=== PATIENT | male | born 1965 | race Caucasian/White ===

== ENCOUNTER 2016-02-23 12:03 | Emergency (ER) | payer BC, OTHER ==
[2016-02-23 12:56] VITALS: BP 146/87; PULSE 65; RESP 16; TEMP 96.8
--- NOTE | 2016-02-23 13:06 | ED ---
General Adult HPI - General Chief complaint: Extremity Injury, Lower Stated complaint: Fall - Ankle Injury Time Seen by Provider: 02/23/16 12:58 Source: patient, RN notes reviewed Mode of arrival: wheelchair Limitations: no limitations - History of Present Illness Initial comments: 50-year-old male who presents with right-sided ankle pain after falling down 3 stairs about 2 hours ago. Patient states he slipped down 3 stairs and rolled his right ankle. Patient states he also hit his tailbone but denies any radicular pain, back pain or loss of bowel or bladder function or loss of sensation to the saddle area. Patient denies any numbness/weakness or tingling. Patient states the pain is worse with flexion and extension of the ankle. Patient has not been able to bear weight to the right lower extremity since the fall. Patient denies any recent fever, chills, shortness breath, chest pain, abdominal pain, nausea/vomiting/diarrhea, back pain, hematuria, headache, or visual changes, or any other complaints. - Related Data Home Medications Medication Instructions Recorded Confirmed Atorvastatin Calcium [Lipitor] 20 mg PO DAILY 06/29/13 02/04/15 Omeprazole [PriLOSEC] 20 mg PO AC-BRKFST 06/29/13 02/04/15 Metoprolol Succinate [Toprol XL] 50 mg PO QAM 10/28/14 02/06/15 Previous Rx's Medication Instructions Recorded HYDROcodone/APAP 5-325MG [[place] 1 tab PO Q6HR #12 tab 02/23/16 5-325] Allergies Allergy/AdvReac Type Severity Reaction Status Date / Time No Known Allergies Allergy Verified 02/23/16 12:52 Review of Systems ROS Statement: Those systems with pertinent positive or pertinent negative responses have been documented in the HPI. ROS Other: All systems not noted in ROS Statement are negative. Past Medical History Past Medical History: GERD/Reflux, Hyperlipidemia, Hypertension Additional Past Medical History / Comment(s): FREQ DIARRHEA,STEROIDS NOV 2014 History of Any Multi-Drug Resistant Organisms: None Reported Past Surgical History: Cholecystectomy Additional Past Surgical History / Comment(s): EGD; COLONOSCOPY Past Anesthesia/Blood Transfusion Reactions: No Reported Reaction Past Psychological History: No Psychological Hx Reported Additional Psychological History / Comment(s): NO TX W/ RX Smoking Status: Never smoker Past Alcohol Use History: Occasional Past Drug Use History: None Reported - Past Family History Father Sister(s) Family Medical History: Cancer Additional Family Medical History / Comment(s): FATHER - LUNG CA; SISTER - BREAST CA General Exam - General Exam Comments Initial Comments: General: The patient is awake and alert, in no distress, and does not appear acutely ill. Neck: The neck is supple, there is no tenderness or JVD. Cardiovascular: There is a regular rate and rhythm. No murmur, rub or gallop is appreciated. Respiratory: Lungs are clear to auscultation, respirations are non-labored, breath sounds are equal. No wheezes, stridor, rales, or rhonchi. Musculoskeletal: There is tenderness to palpation of the medial aspect of the right ankle. There is a deformity to the medial aspect of the right ankle. There is swelling to the medial aspect of the right ankle and an approx 1.5 cm abrasion over the medial malleolus. There is some tenderness to palpation of the distal right tib-fib as well. There is no tenderness palpation to the right foot. Patient has limited range of motion to the right ankle joint due to pain, Sensation intact. Posterior tibial pulses and dorsalis pedis pulses are present bilaterally via Doppler and palpation. Capillary refill is normal at less than 2 seconds. Patient has good coloring to bilateral lower extremities. There is no tenderness to the patient's lumbar spine or paraspinal muscles. Neurological: A&O x 3. CN II-XII intact, There are no obvious motor or sensory deficits. Coordination appears grossly intact. Speech is normal. Skin: Abrasion approximately 1.5 cm to the right medial malleolus with localized swelling and tenderness. Skin is warm and dry and no rashes or lesions are noted. Psychiatric: Normal mood and affect. Limitations: no limitations Course Vital Signs 02/23/16 12:53 Temperature 96.8 F L Pulse Rate 65 Respiratory 16 Rate Blood Pressure 146/87 O2 Sat by Pulse 97 Oximetry Medical Decision Making - Medical Decision Making This is a 50-year-old male with right ankle pain. On physical exam there is tenderness to palpation of the medial aspect of the right ankle. There is a deformity to the medial aspect of the right ankle. There is swelling to the medial aspect of the right ankle and an 1.5 cm abrasion over the medial malleolus There is some tenderness to palpation of the distal tib-fib as well. There is no tenderness palpation to the right foot. Patient has limited range of motion to the right ankle joint due to pain, Sensation intact. Posterior tibial pulses and dorsalis pedis pulses are present via Doppler. Capillary refill is normal at less than 2 seconds. Patient has good coloring to bilateral lower extremities. X-ray of the right ankle is done and reviewed showing: Is a probable comminuted oblique fracture through the distal metaphysis of the right fibula with slight lateral displacement and angulation, associated lateral subluxation of the tibiotalar joint with associated avulsion fracture likely at the medial malleolus. Sclerosis of the posterior aspect of the distal tibia may represent nondisplaced fracture seen best on the lateral view. There is soft tissue swelling, ankle effusion. The report read by Dr. Momin. Patient was given a [place] in the EC today for pain. A short leg posterior OCL splint to the right lower extremity was placed. Neurovascular was rechecked and is intact. Patient was instructed to stay non- weightbearing to the right lower extremity. Attending physician Dr. Willams assisted with splint placement to the right lower extremity. Patient was instructed to rest, ice, elevate and keep splint on until follow-up with orthopedics. Patient will be given crutches. Discussed with patient to follow- up with orthopedics in the next 1-2 days. Please return to the EC if symptoms worsen or for any other concerns. Discussed return parameters. I discussed this case with attending physician Dr. Vidales who awoke withh on-call orthopedic physician Dr. Avalos who suggested splinting the right lower extremity and outpatient orthopedic follow-up. Patient was discharged home. Disposition Clinical Impression: Ankle fracture, right Disposition: HOME SELF-CARE Condition: Good Instructions: Ankle Fracture (ED) Additional Instructions: Please rest, ice, elevate, and use splint for support. Please stay nonweightbearing to the right lower extremity and use crutches. Please use [place] as prescribed. Please follow up with orthopedics tomorrow or as soon as possible. Please return to the EC for any worsening symptoms or for any further concerns. Prescriptions: HYDROcodone/APAP 5-325MG [[place] 5-325] 1 tab PO Q6HR #12 tab Referrals: Frankie Burciaga MD [Primary Care Provider] - 1-2 days William Avalos MD [STAFF PHYSICIAN] - 1-2 days Time of Disposition: 14:25
[2016-02-23] MEDS ORDERED: HYDROcodone/APAP 5-325MG 1 EACH TAB PO STA (13:07)
--- NOTE | 2016-02-23 13:14 | XR ---
Right ankle HISTORY: Trauma and pain 3 views of the right ankle, no comparisons There is a probable comminuted oblique fracture through the distal metaphysis of the right fibula wit h slight lateral displacement and angulation, associated lateral subluxation at the tibiotalar joint with associated avulsion fracture likely at the medial malleolus. Sclerosis at the posterior aspect o f the distal tibia may represent nondisplaced fracture seen best on the lateral view. There is soft t issue swelling, ankle effusion. IMPRESSION: Fractures, Subluxation as described at the ankle joint.
== END 2016-02-23 14:31 | disposition home or self-care (01) ==
LOC: EC 12:03
DX: S82.891A Other fracture of right lower leg, initial encounter for closed fracture (principal); W10.9XXA Fall (on) (from) unspecified stairs and steps, initial encounter; I10 Essential (primary) hypertension; K21.9 Gastro-esophageal reflux disease without esophagitis; E78.5 Hyperlipidemia, unspecified; Z79.899 Other long term (current) drug therapy
CPT/HCPCS: 29515; 99283

== ENCOUNTER → 2018-01-20 | Outpatient (CLI) | payer BC ==
--- NOTE | 2018-01-20 10:45 | CT ---
EXAMINATION TYPE: CT abdomen pelvis wo con DATE OF EXAM: 01/20/2018 HISTORY: Abdominal pain not further specified CT DLP: 1118.10 mGycm. Automated Exposure Control for Dose Reduction was Utilized. TECHNIQUE: CT scan of the abdomen and pelvis is performed with oral but without IV contrast. COMPARISON: CT abdomen pelvis October 28, 2014 FINDINGS: Within the limitations of a non-contrast study, the following observations are made. LUNG BASES: No significant abnormality is appreciated. LIVER/GB: Liver is diffusely low dense relative to spleen consistent with fatty infiltration. Cholecy stectomy clips are redemonstrated PANCREAS: No significant abnormality is seen. SPLEEN: No significant abnormality is seen. ADRENALS: No significant abnormality is seen. KIDNEYS: There is new 2 mm calculus right kidney posteriorly mid to lower pole level seen best howe l image 69. No hydronephrosis or obstructing ureter calculi are seen bilaterally. No intraluminal christa culi are seen in bladder. There is occasional left-sided pelvic phlebolith. BOWEL: No suspicious small or large bowel dilatation is present. Oral contrast does not reach level o f distal ileum making evaluation of distal bowel slightly suboptimal. Terminal ileum is felt within n ormal limits. Appendix is felt within normal limits from medial aspect of cecum. GENITAL ORGANS: No gross abnormality seen. LYMPH NODES: No greater than 1cm abdominal or pelvic lymph nodes are appreciated. OSSEOUS STRUCTURES: There is some facet arthropathy in the lower lumbar spine. OTHER: No significant additional abnormality is seen. IMPRESSION: No suspicious acute findings seen on this noncontrast CT to account for patient's symptom s. Incidental new 2 mm nonobstructing right renal calculus.
== END | disposition home or self-care (01) ==
LOC: RADCTMAIN 09:05
PROVIDERS: ATTEND Family Medicine
DX: R10.9 Unspecified abdominal pain (principal)
CPT/HCPCS: 74176

== ENCOUNTER 2018-02-06 12:41 | Day surgery (SDC) | payer BC ==
[2018-02-03 10:35] VITALS: BMI 31.5
[~2018-02-06 12:41] MED LIST: LACTATED RINGERS 1,000 ML IV SCH
[2018-02-06 12:56] VITALS: TEMP 97.8
[2018-02-06] MEDS ORDERED: LACTATED RINGERS 1,000 ML IV ONE (12:56)
[2018-02-06] MEDS ORDERED: LIDOCAINE 1% 20 ML VIAL (10MG/ML) FOR IV START INTRADERMA ONE (13:03)
[2018-02-06] MEDS ORDERED: LIDOCAINE 1% INJ 10MG/ML (20 ML MDV) ONE (14:11)
[2018-02-06] MEDS ORDERED: PROPOFOL 10 MG/ML 20 ML VIAL IV ONE (14:11)
[2018-02-06] MEDS ORDERED: fentaNYL (PF) 50 MCG/ML 2 ML AMP ONE (14:11)
--- NOTE | 2018-02-06 14:47 | P.PCN ---
Date of Procedure: 02/06/18 Procedure(s) Performed: Procedure: Total colonoscopy. Preoperative diagnosis: History of abdominal pain. Postoperative diagnosis: Examination within normal limits. Preparation: HalfLytely prep. Sedation: Was provided by anesthesia. Brief clinical history: The patient is a 52-year-old male who is scheduled for this evaluation because of history of abdominal pain and possible colitis/ diverticulitis. He had a prior exam in January 2015 which was within normal limits. Procedure: With the patient on his left lateral decubitus position and after informed consent and adequate sedation, the perianal area was inspected and it did not show any fissures or fistulas. There were no masses felt on digital rectal examination. The Olympus CFH 190L video colonoscope was then inserted in the rectum in the usual fashion and advanced to the cecum. The mucosa appeared healthy. No polyps or tumors were seen or any obvious diverticular disease or other pathology. I retroflexed the endoscope in the rectum before the endoscope was withdrawn. The patient tolerated the procedure well. Plan: The patient was reassured. He will follow up with you as planned. I would be happy to see in the office of his symptoms persist or recur.
[2018-02-06 15:11] VITALS: BP 128/77; PULSE 66; RESP 18
== END 2018-02-06 15:22 | disposition home or self-care (01) ==
LOC: ORWHC2ENDO 12:41
DX: R10.9 Unspecified abdominal pain (principal); I10 Essential (primary) hypertension; E78.5 Hyperlipidemia, unspecified; K21.9 Gastro-esophageal reflux disease without esophagitis; F17.290 Nicotine dependence, other tobacco product, uncomplicated; Z79.899 Other long term (current) drug therapy
CPT/HCPCS: 45378; J2001; J3010; J2704

== ENCOUNTER 2019-04-05 06:56 | Day surgery (SDC) | payer BC ==
[2019-04-03 14:08] VITALS: BMI 30.8
[~2019-04-05 06:56] MED LIST changes: +DEXAMETHASONE SOD PHOSPHATE 10 MG/ML 1 ML VIAL IV ONE; +HYDROmorphone 0.5 MG/0.5 ML SYRINGE IVP PRN; +LIDOCAINE 1% 20 ML VIAL (10MG/ML) FOR IV START INTRADERMA PRN; +MIDAZOLAM 2 MG/2 ML VIAL IV PRN; +ONDANSETRON 4 MG/2 ML VIAL IVP ONE; +fentaNYL (PF) 50 MCG/ML 2 ML AMP IV PRN
[2019-04-05] MEDS ORDERED: MIDAZOLAM 2 MG/2 ML VIAL ONE (08:49)
[2019-04-05] MEDS ORDERED: LIDOCAINE 1% INJ 10MG/ML (20 ML MDV) ONE (08:49)
[2019-04-05] MEDS ORDERED: SUCCINYLCHOLINE CHLORIDE 100 MG/5 ML SYR IV ONE (08:49)
[2019-04-05] MEDS ORDERED: fentaNYL (PF) 50 MCG/ML 2 ML AMP ONE (08:49)
[2019-04-05] MEDS ORDERED: PROPOFOL 10 MG/ML 20 ML VIAL IV ONE (08:49)
[2019-04-05] MEDS ORDERED: LACTATED RINGERS 1,000 ML IV ONE ×2 (09:25)
[2019-04-05 09:56] VITALS: TEMP 97
--- NOTE | 2019-04-05 10:15 | P.OP ---
Date of Procedure: 04/05/19 Preoperative Diagnosis: Symptomatic hardware, right foot status post first MTP arthrodesis Postoperative Diagnosis: Same Procedure(s) Performed: Hardware removal deep, right foot Anesthesia: TAYLOR Surgeon: Kenton Griggs Alarm Installer #1: Rafael Nogueira Estimated Blood Loss (ml): 5 IV fluids (ml): 500 Pathology: none sent Condition: stable Disposition: PACU Indications for Procedure: The patient is a very pleasant previously healthy 53-year-old female who underwent a first MTP arthrodesis over a year ago. He went on to a solid fusion is doing well but developed symptoms of to be able to the hardware. We discussed continued observation versus surgical removal. At first the patient observed but then his pain became increased. Clinically he had palpable hardware over the dorsal aspect of the joint. He requested hardware removal. We discussed potential risks and complications including but not limited to risk of anesthesia, infection, damage to blood vessel or nerve, intraoperative fracture, postoperative fracture, nonunion requiring replacement of hardware, DVT, PE, other medical complications, continued or worsened pain, dissatisfaction with surgery, and possibly loss of life or limb. The patient voiced understanding of these potential complications will also analogy that other less common Occasions or possible. He provided his verbal and written consent to go forward with surgery. Description of Procedure: The patient was identified in preoperative holding and the correct right first foot was marked with my initials. I reviewed the consent form with the patient and his daughter. All their questions were answered. The patient was then brought back to the operating room by anesthesia. He was positioned on the OR table where general anesthetic was given. A tourniquet was applied the proximal aspect of his right leg. All bony prominences were well-padded. The right leg was then prepped and draped in the standard sterile fashion. Prior to starting surgery timeout was performed identifying the correct patient, operative extremity, and procedure. The patient's leg was then elevated, exsanguinated with an Esmarch bandage, and the tourniquet was inflated to 250 mmHg. Next I began by outlining the scar over the dorsal aspect of the first MTP joint with a skin marker. Skin incision with a 15 blade and dissection was carried down carefully through subcutaneous tissue with tenotomy scissors. The EHL tendon and capsule were sharply elevated off the dorsal plate with a scalpel. The plate was then circumferentially exposed, the screws were removed, and the plate was carefully levered off the bone. On inspection of the fusion appeared solid with no motion. A stab incision was made over the medial base of the proximal phalanx and blunt dissection was carried down through the subcu tissues tissue with a hemostat. The screwdriver was inserted through the stab incision and the oblique lag screw was removed. Final fluoroscopic images were taken documenting solid fusion of the joint and complete removal of all the hardware. The wound was then thoroughly irrigated and closed in layers. A sterile dressing was applied. The tourniquet was let down. An Geovani wrap was applied over the sterile dressing and the patient was placed in a hard sole postoperative shoe. He was awoken from his anesthetic, extubated, transferred to a gurney, and brought to recovery the procedure well. Plan: The patient is going to weight-bear as tolerated in a tall cam boot. He'll leave his dressing in place for 2 days at which point he can remove the dressing. He'll follow up in the office in 2 weeks for a wound check. He does not need x-rays at that time.
[2019-04-05] MEDS ORDERED: KETOROLAC 30 MG/ML 1 ML VIAL IVP ONE (10:21)
[2019-04-05 10:46] VITALS: RESP 18
--- NOTE | 2019-04-05 10:50 | FL ---
EXAMINATION TYPE: FL guidance operating room DATE OF EXAM: 04/05/2019 HISTORY: Fluoroscopy time 9 seconds of fluoroscopy provided. IMPRESSION: 1. Fluoroscopy time.
--- NOTE | 2019-04-05 10:50 | XR ---
EXAMINATION TYPE: XR foot limited RT DATE OF EXAM: 04/05/2019 COMPARISON: NONE HISTORY: Hardware removal TECHNIQUE: One view is submitted. FINDINGS: Removal of hardware. Defects within the metatarsal and proximal phalanx from previous hardware noted. MTP joint not well seen. IMPRESSION: 1. Postoperative change
[2019-04-05 11:10] VITALS: BP 134/78; PULSE 78
== END 2019-04-05 11:53 | disposition home or self-care (01) ==
LOC: OR 06:56
PROVIDERS: ATTEND Orthopaedic Surgery
DX: T84.84XA Pain due to internal orthopedic prosthetic devices, implants and grafts, initial encounter (principal); M20.21 Hallux rigidus, right foot; I10 Essential (primary) hypertension; E78.5 Hyperlipidemia, unspecified; Z90.49 Acquired absence of other specified parts of digestive tract; Z79.899 Other long term (current) drug therapy; Z82.49 Family history of ischemic heart disease and other diseases of the circulatory system
CPT/HCPCS: 73620; 20680; J2250; J1100; J0690; J2405; J2001; J3010; J1885; J0330; J2704

== ENCOUNTER → 2020-05-21 | Outpatient (CLI) | payer BC ==
[2020-05-21 21:26] LABS: Basophils # (A) 0.03 X 10*3/uL (0.00-0.10); Basophils % (A) 0.5 %; Eosinophils # (A) 0.21 X 10*3/uL (0.04-0.35); Eosinophils % (A) 3.2 %; HCT 40.9 % (39.6-50.0); HGB 13.8 g/dL (13.0-17.0); Lymphocytes # (A) 2.95 X 10*3/uL (0.90-5.00); Lymphocytes % (A) 44.5 %; MCH 33.2 pg (27.0-32.0); MCHC 33.7 g/dL (32.0-37.0); MCV 98.3 fL (80.0-97.0); Mean Platelet Volume 10.2 fL (9.5-12.2); Monocytes # (A) 0.52 X 10*3/uL (0.20-1.00); Monocytes % (A) 7.8 %; Neutrophils % (A) 43.7 %; Platelet Count 206 X 10*3/uL (140-440); RBC 4.16 X 10*6/uL (4.40-5.60); RDW 12.9 % (11.5-14.5); WBC 6.63 X 10*3/uL (4.50-10.00)
[2020-05-21 21:58] LABS: African American GFR (CKD) 70.7 (60.0-200.0); Albumin 4.4 g/dL (3.80-4.90); Albumin/Globulin Ratio 1.91 (1.60-3.17); Anion Gap 9.2 mmol/L (4.00-12.00); BUN/Creat Ratio 10.77 Ratio (12.00-20.00); Calcium 9.4 mg/dL (8.7-10.3); Carbon Dioxide 27.8 mmol/L (21.6-31.8); Chol/HDL Ratio 4.02; Globulin 2.3 g/dL (1.6-3.3); LDL Cholesterol,Calculated 98.6 mg/dL (0.0-131.0); Phosphorus 3.2 mg/dL (2.4-5.1); Potassium 4.4 mmol/L (3.5-5.5); Total Bilirubin 0.6 mg/dL (0.2-1.2); Total Protein 6.7 g/dL (6.2-8.2); VLDL Calculation 40.4 mg/dL (5.00-40.00)
[2020-05-21 23:17] LABS: Erythrocyte Sedimentation Rate 19 mm/Hr (0-20)
== END | disposition home or self-care (01) ==
LOC: LABWHC1 14:08
PROVIDERS: ATTEND Family Medicine
DX: E78.2 Mixed hyperlipidemia (principal); N18.9 Chronic kidney disease, unspecified; R74.8 Abnormal levels of other serum enzymes
CPT/HCPCS: 36415; 80053; 80061; 82306; 82550; 83735; 83874; 83970; 84100; 84550; 85025; 85652

== ENCOUNTER 2020-05-30 04:06 | Emergency (ER) | payer BC ==
[2020-05-30] MEDS ORDERED: guaiFENesin-DM 600/30MG 1 EACH TAB.ER.12H PO ONE (04:15)
--- NOTE | 2020-05-30 04:46 | XR ---
EXAM: XR Chest, 2 Views CLINICAL HISTORY: ITS.REASON XR Reason: cough TECHNIQUE: Frontal and lateral views of the chest. COMPARISON: 10/26/2014 FINDINGS: Lungs: Bilateral streaky opacities Pleural space: No effusion. Heart: No cardiomegaly. Bones/joints: No acute findings. IMPRESSION: Bilateral streaky opacities. Correlate with infectious process.
[2020-05-30] MEDS ORDERED: ACETAMINOPHEN TAB 325 MG TAB PO STA (04:58)
[2020-05-30 05:27] VITALS: RESP 18
[2020-05-30] MEDS ORDERED: BAMLANIVIMAB (EUA) 700 MG, ETESEVIMAB (EUA) 1,400 MG in SODIUM CHLORIDE 0.9% 50 ML IVPB ONE (06:30)
[2020-05-30] MEDS ORDERED: SODIUM CHLORIDE 0.9% 50 ML IVPB ONE (06:30)
[2020-05-30 07:02] VITALS: BP 103/74; PULSE 94; TEMP 99.7
--- NOTE | 2020-05-30 07:08 | ED ---
URI HPI - General Chief Complaint: Upper Respiratory Infection Stated Complaint: COVID+, cough Time Seen by Provider: 05/30/20 05:35 Source: patient Mode of arrival: ambulatory Limitations: no limitations - History of Present Illness Initial Comments: This patient's 54-year-old man here to have reevaluation for Covid symptoms. The patient states that he had a positive test on the second. He had started getting sick the day before. He has been having fevers and chills, myalgias, cough, and he states that the cough is causing him to have chest pains. No dyspnea. No diarrhea or vomiting MD Complaint: cough, other (Chest pain) -: days(s) Severity: moderate Quality: burning, aching Consistency: intermittent Improves With: nothing Worsens With: other (Coughing) Associated Symptoms: fever, chills, myalgias, cough, chest pain Treatments Prior to Arrival: none - Related Data Home Medications Medication Instructions Recorded Confirmed Atorvastatin Calcium [Lipitor] 20 mg PO DAILY 06/29/13 04/05/19 Metoprolol Succinate [Toprol XL] 50 mg PO QAM 10/28/14 04/05/19 Omeprazole 1 tab PO DAILY 04/05/19 04/05/19 Previous Rx's Medication Instructions Recorded Aspirin 325 mg PO DAILY #14 tab 04/05/19 Docusate [Colace] 100 mg PO BID #60 capsule 04/05/19 Hydrocodone/Acetaminophen [[place] 1 tab PO Q6HR PRN #12 tab 04/05/19 5-325] Allergies Allergy/AdvReac Type Severity Reaction Status Date / Time No Known Allergies Allergy Verified 05/30/20 04:11 Review of Systems ROS Statement: Those systems with pertinent positive or pertinent negative responses have been documented in the HPI. ROS Other: All systems not noted in ROS Statement are negative. Constitutional: Reports: fever, chills ENT: Denies: throat pain Respiratory: Reports: as per HPI, cough. Denies: dyspnea, hemoptysis Cardiovascular: Reports: as per HPI, chest pain Gastrointestinal: Denies: abdominal pain, vomiting, diarrhea Genitourinary: Denies: dysuria, hematuria Musculoskeletal: Denies: back pain Skin: Denies: rash Neurological: Denies: headache, weakness, numbness Past Medical History Past Medical History: GERD/Reflux, Hyperlipidemia, Hypertension Additional Past Medical History / Comment(s): FREQ DIARRHEA, History of Any Multi-Drug Resistant Organisms: None Reported Past Surgical History: Cholecystectomy, Orthopedic Surgery Additional Past Surgical History / Comment(s): EGD, COLONOSCOPY, right leg surgery with plate and 7 screws, right big toe surgery with plate and screws. Past Anesthesia/Blood Transfusion Reactions: No Reported Reaction Past Psychological History: No Psychological Hx Reported Smoking Status: Never smoker Past Alcohol Use History: Rare Past Drug Use History: None Reported - Past Family History Father Sister(s) Family Medical History: Cancer Additional Family Medical History / Comment(s): FATHER - LUNG CA; SISTER - BREAST CA Daughter(s) Family Medical History: Cancer General Exam Limitations: no limitations General appearance: alert, in no apparent distress Head exam: Present: atraumatic, normocephalic Eye exam: Present: normal appearance. Absent: scleral icterus, conjunctival injection Respiratory exam: Present: rales (Few scattered), chest wall tenderness. Absent: respiratory distress, wheezes, rhonchi, stridor, accessory muscle use Cardiovascular Exam: Present: regular rate, normal rhythm, normal heart sounds. Absent: systolic murmur, diastolic murmur, rubs, gallop GI/Abdominal exam: Present: soft. Absent: distended, tenderness, guarding, rebound, rigid, mass Extremities exam: Present: normal inspection, normal capillary refill. Absent: pedal edema, calf tenderness Back exam: Present: normal inspection. Absent: CVA tenderness (R), CVA tenderness (L) Neurological exam: Present: alert Skin exam: Present: warm, dry, intact, normal color. Absent: rash Course Vital Signs 05/30/20 05/30/20 05/30/20 04:07 05:26 06:55 Temperature 99.9 F H 98.9 F Pulse Rate 109 H 93 Respiratory 20 18 18 Rate Blood Pressure 132/88 123/80 O2 Sat by Pulse 96 94 L Oximetry Disposition Clinical Impression: COVID-19 Disposition: HOME SELF-CARE Condition: Good Instructions (If sedation given, give patient instructions): Coronavirus Disease 2019 (COVID-19) Is patient prescribed a controlled substance at d/c from ED?: No Referrals: Frankie Burciaga MD [Primary Care Provider] - 1-2 days
[2020-05-30] MEDS ORDERED: guaiFENesin-DM 600/30MG 1 EACH TAB.ER.12H PO STA (07:45)
== END 2020-05-30 08:21 | disposition home or self-care (01) ==
LOC: EC 04:06
DX: U07.1 COVID-19 (principal); I10 Essential (primary) hypertension; E78.5 Hyperlipidemia, unspecified; K21.9 Gastro-esophageal reflux disease without esophagitis; Z79.82 Long term (current) use of aspirin
CPT/HCPCS: 71046; 99285; 96365; Q0245

== ENCOUNTER → 2024-04-13 | Outpatient (CLI) | payer BC ==
--- NOTE | 2024-04-13 12:19 | US ---
EXAMINATION TYPE: US abdomen complete DATE OF EXAM: 04/13/2024 COMPARISON: NONE CLINICAL INDICATION: Male, 58 years old with history of R10.9 ABDOMINAL PAIN; LUQ pain x 6 months TECHNIQUE: Grayscale and color Doppler imaging of the abdomen was performed. FINDINGS: EXAM MEASUREMENTS: Liver Length: 16.1 cm Gallbladder Wall: Surgically absent CBD: not visualized, color Doppler imaging was utilized to isolate the common bile duct for measurem ent. Spleen: 11.6 cm Right Kidney: 9.6x6.0x5.7 cm Left Kidney: 11.9x5.5x4.3 cm REFUELING RAMP SUPERVISOR NOTES: Pancreas: Tail obscured by overlying bowel gas Liver: coarse echotexture, Increased attenuation, decreased visualization of vessels suggestive of f atty infiltrate Gallbladder: Surgically absent Evidence for sonographic Avalos's sign: No CBD: Obscured by overlying bowel gas Spleen: wnl Right Kidney: wnl, No hydronephrosis, calculi or masses seen Left Kidney: wnl, No hydronephrosis, calculi or masses seen Upper IVC: wnl Abd Aorta: wnl exam limited by bowel gas and body habitus IMPRESSION: 1. No suspicious acute ultrasound abnormality. 2. There may be some mild fatty infiltration liver [facility], , 04/13/2024 12:17 PM
== END | disposition home or self-care (01) ==
LOC: RADUSWWP 08:55
PROVIDERS: ATTEND Family Medicine
DX: R10.9 Unspecified abdominal pain (principal)
CPT/HCPCS: 76700